=== PATIENT | female | born 1975 | race Caucasian/White ===

== ENCOUNTER 2016-11-30 18:15 | Emergency (ER) | payer OTHER ==
[~2016-11-30] VITALS: Ht 170.2 cm; Wt 100.2 kg
[~2016-11-30 18:15] MED LIST: ATORVASTATIN CA10 MG PO; BENTYL10 MG PO; BUSPIRONE10 MG PO; CIPROFLOXACIN500 MG PO; CRANBERRY400 MG PO; CYCLOBENZAPRINE5 M2 PO; CYMBALTA 30 MG30 MG PO; DONNATAL TABS1 TAB PO; FLEXERIL10 MG PO; HYDROXYZINE PAM25 MG PO; IBUPROFEN800 M1 PO; LEXAPRO 20MG M20 MG PO; MEDROL DOSEPAK1 PAC PO; MELOXICAM7.5 MG PO; METFORMIN ER500 MG PO; METFORMIN HCL1000 M2 PO; METFORMIN HCL500 MG PO; NEURONTIN300 MG PO; NORCO 325 MG-51 TAB PO; PERCOCET 325 MG1 TA2 PO; PERCOCET 5-3251 EACH PO; PREMARIN0.3 MG PO; TRAMADOL50 MG PO; TRAZODONE HCL100 M1 PO; ZOFRAN4 M1 PO; ZOFRAN4 M1 SL
[2016-11-30 18:25] VITALS: BP 126/85
--- NOTE | 2016-11-30 19:01 | ED UPPER/LOWER EXTREMITY COMPL ---
History of Present Illness General Chief Complaint: Shoulder Injury Stated Complaint: L SHOULDER INJURY Source: patient, old records Exam Limitations: no limitations Vital Signs & Intake/Output Vital Signs & Intake/Output Vital Signs Date Time Temp Pulse Resp B/P Pulse O2 O2 Flow FiO2 Ox Delivery Rate 11/30 1825 96.9 92 18 126/85 96 Room Air ED Intake and Output 12/01 0000 11/30 1200 Intake Total Output Total Balance Patient 221 lb Weight Allergies Coded Allergies: Sulfa (Sulfonamide Antibiotics) (Intermediate, RASH 01/26/16) erythromycin base (Mild, HIVES 01/26/16) latex (Mild, RASH 01/26/16) Reconcile Medications Albuterol Sulfate (Proair Hfa) 90 MCG HFA.AER.AD 2 PUF INH Q4-6 PRN PRN RESPIRATORY (Reported) Atorvastatin Calcium (Lipitor) 10 MG TAB 1 TAB PO DAILY CHOLESTEROL (Reported ) Cephalexin 500 MG CAPSULE 1 CAP PO 4 TIMES/DAY ANTIBIOTIC (Reported) Duloxetine HCl 30 MG CAPSULE.DR 1 CAP PO DAILY ARTHRITIS (Reported) Escitalopram Oxalate (Lexapro 20MG) 20 MG TAB 1 TAB PO DAILY MENTAL HEALTH ( Reported) Estrogens, Conjugated (Premarin) 0.45 MG TABLET 1 TAB PO DAILY HRT (Reported) Gabapentin (Neurontin) 300 MG CAP 2 CAP PO DAILY MENTAL HEALTH (Reported) Gabapentin (Neurontin) 300 MG CAP 4 CAP PO AT BEDTIME MENTAL HEALTH (Reported ) Hydrocodone/Acetaminophen ([place] 5-325 Tablet) 5 MG-325 MG TABLET 1 TAB PO Q4- 6 PRN PRN pain Hydroxyzine HCl 10 MG TABLET 1 TAB PO TID ANXIETY (Reported) Liraglutide (Victoza 3-Jarrod) 0.6 MG/0.1 ML (18 MG/3 ML) PEN.INJCTR 1.8 MG SC DAILY DM (Reported) Metformin Hydrochloride (Metformin HCl) 500 MG TAB 2 TAB PO BID DIABETES ( Reported) Methocarbamol (Robaxin-750) 750 MG TABLET 1 TAB PO TID PRN muscle spasm Naproxen (Naprosyn) 500 MG TABLET 1 TAB PO BID PRN pain Trazodone HCl 100 MG TABLET 2 TAB PO QPM SLEEP (Reported) Varenicline Tartrate (Chantix) (Unknown Strength) TAB.DS.PK (Unknown Dose) UNKNOWN (Reported) Triage Note: PT TO TRIAGE WITH LEFT SHOULDER PAIN 8/10 S/P PULLED HERSELF INTO TRACK 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 ICE PACK PROVIDED. PT REFUSED PAIN MEDS IN TRIAGE. VSS. Triage Nurses Notes Reviewed? yes : No Patient currently breastfeeds: No HPI: 41-year-old vrsd-tlyi-lnrenycu female here with complaints of severe left shoulder pain that started yesterday. She reached up to pull herself into her pickup truck when she felt a severe pain into the top of the left shoulder and has had severe pain with any attempts at motion ever since. She has history of bursitis in the shoulder. Ezgu-twr-dsjryku medication has been infected. It is aching and throbbing. There is no pain radiating down the arm, there was no fall or trauma. (SAMINA MARK) Past History Travel History Traveled to [place] past 21 day No Medical History Any Pertinent Medical History? 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 No (SAMINA MARK) Review of Systems Review of Systems Constitutional: Reports: see HPI. EENTM: Reports: no symptoms. Respiratory: Reports: no symptoms. Cardiovascular: Reports: no symptoms. Gastrointestinal/Abdominal: Reports: no symptoms. Genitourinary: Reports: no symptoms. Musculoskeletal: Reports: see HPI. Skin: Reports: no symptoms. Neurological/Psychological: Reports: no symptoms. Hematologic/Endocrine: Reports: no symptoms. Immunological: Reports: no symptoms. All Other Systems: Reviewed and Negative (SAMINA MARK) Physical Exam Physical Exam General Appearance: well developed/nourished Comments: Well-developed well-nourished no apparent distress. HEENT: Atraumatic, extraocular motion intact Neck: Supple, no lymphadenopathy Back: Nontender Respiratory: No respiratory distress Extremities: No edema, Tenderness to the left distal trapezius region near the clavicle and superior scapular spine region. Mild muscle spasm noted there. Range of motion is severely limited secondary to pain, 0-30 on forward elevation and abduction, internal and external rotation is normal., Could not test rotator cuff due to limited range of motion. Neurovascularly intact. Neuro: Alert and oriented x3 Psych: Mood affect normal, normal memory normal judgment. Skin: Warm and dry, no rash on exposed skin (SAMINA MARK) Progress Differential Diagnosis: arterial insufficiency, cellulitis, CHF, compartment syndrome, contusion, dislocation, DVT, fracture, gout, septic arthritis, sprain, tendon injury Plan of Care: Orders Procedure Date/time Status Durable Medical Equipment 11/30 1905 Active Diagnostic Imaging: Viewed by Me: Radiology Read. Discussed w/RAD: Radiology Read. Radiology Impression: PATIENT: LEDA SANTANA PRESENT AGE: 41 PATIENT ACCOUNT NO: [id number] : 74 LOCATION: [facility] ORDERING PHYSICIAN: SAMINA GREENBERG SERVICE DATE: 11/30/16 EXAM TYPE: RAD - XRY-SHOULDER COMPLETE-LEFT EXAMINATION: XR SHOULDER, LEFT CLINICAL INFORMATION: Left shoulder pain. COMPARISON: None. TECHNIQUE: Internal rotation, external rotation and transscapular views of the left shoulder. FINDINGS: No acute fracture or dislocation of the left shoulder. The left acromioclavicular joint is intact. No acute bone, joint or soft tissue abnormality is demonstrated. Posttraumatic deformity involving the mid clavicle. IMPRESSION: No acute fracture or dislocation of the left shoulder. Old healed fracture of the left clavicle. 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 She will be given anti-inflammatory medication muscle relaxers and pain medication, recommend warm compresses gentle stretching orthopedic follow-up if no better in 1-2 weeks. (SAMINA MARK) Departure Departure Disposition: HOME OR SELF CARE Condition: Stable Clinical Impression Primary Impression: Strain of left trapezius muscle Qualifiers: Encounter type: initial encounter Qualified Code: S46.812A - Strain of other muscles, fascia and tendons at shoulder and upper arm level, left arm, initial encounter Referrals: ARIEL NAIDU,PATTI LI MD,INDIRA (PCP/Family) Additional Instructions: Rest, warm compresses, sling for comfort, gentle stretching Take medication as directed for pain and inflammation and muscle spasm Gradual return to activity as tolerated. Follow-up with orthopedist in one to 2 weeks if no better. Departure Forms: Customer Survey General Discharge Information Prescriptions: Current Visit Scripts Methocarbamol (Robaxin-750) 1 TAB PO TID PRN muscle spasm #15 TAB Naproxen (Naprosyn) 1 TAB PO BID PRN pain #20 TAB Hydrocodone/Acetaminophen ([place] 5-325 Tablet) 1 TAB PO Q4-6 PRN PRN pain #10 TAB (SAMINA MARK) PA/FORENSIC SOCIAL WORKER Co-Sign Statement Statement: ED Attending supervision documentation- [] I saw and evaluated the patient. I have also reviewed all the pertinent lab results and diagnostic results. I agree with the findings and the plan of care as documented in the PA's/FORENSIC SOCIAL WORKER's documentation. [X] I have reviewed the ED Record and agree with the PA's/FORENSIC SOCIAL WORKER's documentation. [] Additions or exceptions (if any) to the PAs/FORENSIC SOCIAL WORKER's note and plan are summarized below: [] (BENIGNO NAIDU,HERNANDEZ)
[2016-11-30] MEDS ORDERED: ROBAXIN-750750 M1 PO (19:09)
[2016-11-30] MEDS ORDERED: NAPROSYN500 M1 PO (19:09)
[2016-11-30] MEDS ORDERED: NORCO 5-325 TA1 EACH PO (19:09)
--- NOTE | 2016-11-30 19:09 | RADIOLOGY REPORT ---
EXAMINATION: XR SHOULDER, LEFT CLINICAL INFORMATION: Left shoulder pain. COMPARISON: None. TECHNIQUE: Internal rotation, external rotation and transscapular views of the left shoulder. FINDINGS: No acute fracture or dislocation of the left shoulder. The left acromioclavicular joint is intact. No acute bone, joint or soft tissue abnormality is demonstrated. Posttraumatic deformity involving the mid clavicle. IMPRESSION: No acute fracture or dislocation of the left shoulder. Old healed fracture of the left clavicle.
[2016-11-30] MEDS ORDERED: HYDROXYZINE HCL10 M1 PO (19:32)
[2016-11-30] MEDS ORDERED: CEPHALEXIN500 M3 PO (19:32)
[2016-11-30] MEDS ORDERED: CHANTIX1 EACH (19:33)
[2016-11-30] MEDS ORDERED: PROAIR HFA8.5 GM INH (19:33)
[2016-11-30] MEDS ORDERED: VICTOZA 3-0.6 MG/0.1 SC (19:34)
[2016-11-30] MEDS ORDERED: PREMARIN0.45 M1 PO (19:34)
[2016-11-30] MEDS ORDERED: DULOXETINE HCL30 MG PO (19:35)
== END 2016-11-30 19:41 ==
LOC: ERH 18:15
DX: S46.912A Strain of unspecified muscle, fascia and tendon at shoulder and upper arm level, left arm, initial encounter (principal); X58.XXXA Exposure to other specified factors, initial encounter
CPT/HCPCS: 73030-LT

== ENCOUNTER 2016-12-19 00:38 | Emergency (ER) | payer OTHER ==
[~2016-12-19] VITALS: Ht 172.7 cm; Wt 99.8 kg
[~2016-12-19 00:38] MED LIST changes: +CEPHALEXIN500 M3 PO; +CHANTIX1 EACH; +DULOXETINE HCL30 MG PO; +HYDROXYZINE HCL10 M1 PO; +NAPROSYN500 M1 PO; +NORCO 5-325 TA1 EACH PO; +PREMARIN0.45 M1 PO; +PROAIR HFA8.5 GM INH; +ROBAXIN-750750 M1 PO; +VICTOZA 3-0.6 MG/0.1 SC
--- NOTE | 2016-12-19 01:08 | ED GENERAL ADULT ---
History of Present Illness General Chief Complaint: Chest Pain Stated Complaint: BIBA CP Source: patient Exam Limitations: no limitations Allergies Coded Allergies: Sulfa (Sulfonamide Antibiotics) (Intermediate, RASH 01/26/16) erythromycin base (Mild, HIVES 01/26/16) latex (Mild, RASH 01/26/16) Reconcile Medications Albuterol Sulfate (Proair Hfa) 90 MCG HFA.AER.AD 2 PUF INH Q4-6 PRN PRN RESPIRATORY (Reported) Atorvastatin Calcium (Lipitor) 10 MG TAB 1 TAB PO DAILY CHOLESTEROL (Reported ) Cephalexin 500 MG CAPSULE 1 CAP PO 4 TIMES/DAY ANTIBIOTIC (Reported) Duloxetine HCl 30 MG CAPSULE.DR 1 CAP PO DAILY ARTHRITIS (Reported) Escitalopram Oxalate (Lexapro 20MG) 20 MG TAB 1 TAB PO DAILY MENTAL HEALTH ( Reported) Estrogens, Conjugated (Premarin) 0.45 MG TABLET 1 TAB PO DAILY HRT (Reported) Gabapentin (Neurontin) 300 MG CAP 2 CAP PO DAILY MENTAL HEALTH (Reported) Gabapentin (Neurontin) 300 MG CAP 4 CAP PO AT BEDTIME MENTAL HEALTH (Reported ) Hydrocodone/Acetaminophen ([place] 5-325 Tablet) 5 MG-325 MG TABLET 1 TAB PO Q4- 6 PRN PRN pain Hydroxyzine HCl 10 MG TABLET 1 TAB PO TID ANXIETY (Reported) Liraglutide (Victoza 3-Jarrod) 0.6 MG/0.1 ML (18 MG/3 ML) PEN.INJCTR 1.8 MG SC DAILY DM (Reported) Metformin Hydrochloride (Metformin HCl) 500 MG TAB 2 TAB PO BID DIABETES ( Reported) Methocarbamol (Robaxin-750) 750 MG TABLET 1 TAB PO TID PRN muscle spasm Naproxen (Naprosyn) 500 MG TABLET 1 TAB PO BID PRN pain Trazodone HCl 100 MG TABLET 2 TAB PO QPM SLEEP (Reported) Varenicline Tartrate (Chantix) (Unknown Strength) TAB.DS.PK (Unknown Dose) UNKNOWN (Reported) Triage Note: PT BIBA FROM HOME C/O LEFT SIDED CP RADIATING UP NECK ONSET 11 AM YESTERDAY WHILE AT WORK SITTING DOWN. PT REPORTS PAIN GETTING INCREASINGLY WORSE THROUGHOUT THE DAY BEING AT ITS WORSE AT 10 PM. PT REPORTS TAKING TOTAL 567 ASPIRIN. PER EMS PT GIVEN ONE NITRO WIHOUT RELIEF. PT DENIES SO, N/V, FEVER AND CHILLS Triage Nurses Notes Reviewed? yes : No Patient currently breastfeeds: No HPI: Patient is a 41 year old lady that was BIBA due chest pain that started this am at 11, was sharp, 8/10, intermittent but became constant at around 10 pm when she had an argument with her significant other. patient first thought the pain was a panic attack similar to what she had from before but due to the length and severity became concerned that it might be cardiac related. She took 3 tabs of 81 mg aspirin, and called EMS, she then took another 4 tabs due to their suggestion. EMS also gave her SL nitroglycerin which did not alleviated the pain , she had BP of 118/70 and BS of 212, SO2 94% on RA. In the ED patient still complains of severe 11/10 chest pain on the left side, not positional, not related to breathing and present at rest, radiating to the neck on the left side but not jaw or arm. Denies diaphoresis, SOB, reports coughing which is not productive, history of smoking. Denies fever or chills, denies dysuria, abdominal pain, constipation. reports diarrhea which is chronic due to IBS. (FERNANDEZ NAIDU,[facility]) Vital Signs & Intake/Output Vital Signs & Intake/Output Vital Signs Date Time Temp Pulse Resp B/P Pulse O2 O2 Flow FiO2 Ox Delivery Rate 12/19 0252 94 12/19 0045 98.2 71 20 108/64 96 Room Air LMP (ages 10-50): unknown (SCAR NAIDU,KARLA) Past History Travel History Traveled to [place] past 21 day No Medical History Any Pertinent Medical History? 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 No (HANNAH PRESLEY MD) Review of Systems Review of Systems Constitutional: Denies: chills, diaphoresis, fever, malaise, weakness. EENTM: Reports: no symptoms. Respiratory: Reports: cough. Denies: short of breath. Cardiovascular: Reports: chest pain. Denies: orthopena, palpitations. GI: Reports: diarrhea. Genitourinary: Reports: no symptoms. Musculoskeletal: Reports: no symptoms. Skin: Reports: no symptoms. Neurological/Psychological: Denies: headache, weakness. Hematologic/Endocrine: Reports: no symptoms. (HANNAH PRESLEY MD) Review of Systems Immunologic/Allergic: Reports: no symptoms. All Other Systems: Reviewed and Negative (KARLA ABBOTT MD) Physical Exam Physical Exam General Appearance: well developed/nourished, no apparent distress, alert, awake , comfortable Head: atraumatic, normal appearance Eyes: Bilateral: PERRL, EOMI. Ears, Nose, Throat: normal pharynx, normal ENT inspection Neck: normal inspection, supple, full range of motion Respiratory: chest non-tender, wheezing bilaterally Cardiovascular: regular rate/rhythm, no murmurs Peripheral Pulses: 2+ radial (R), 0 radial (L) (due to previous trauma (fx)) Gastrointestinal: normal bowel sounds, soft, non-tender Back: normal inspection, normal range of motion, no vertebral tenderness Extremities: normal inspection, normal capillary refill, normal range of motion, no edema Neurologic/Psych: no motor/sensory deficits, awake, alert, oriented x 3, normal gait Skin: intact Core Measures ACS in differential dx? Yes CVA/TIA Diagnosis: No Severe Sepsis Present: No Septic Shock Present: No (HANNAH PRESLEY MD) Physical Exam Reflexes: 2+: bicep (R), bicep (L). Lymphatic: no anterior cervical chintan (KARLA ABBOTT MD) Progress Differential Diagnoses I considered the following diagnoses in my evaluation of the patient: [ACS, pneumonia, COPD exacerbation, anxiety attack] Initial ED EKG: NSR Comments: 4 am, patient still in pain (left chest), nebulizer treatment decreased wheezing. She received 2 mg IV ativan. second troponin came back negative. 5:50 am, patient is sleeping. (HANNAH PRESLEY MD) Plan of Care: Orders Procedure Date/time Status TROPONIN LEVEL 12/19 399 Complete TROPONIN LEVEL 12/19 110 Complete CBC WITHOUT DIFFERENTIAL 12/19 110 Complete BASIC METABOLIC PANEL 12/19 110 Complete EKG 12/19 39 Active Laboratory Tests 12/19/16 0404: Troponin I < 0.01 12/19/16 0131: Anion Gap 8, Estimated GFR > 60, BUN/Creatinine Ratio 25.7 H, Glucose 181 H, Calcium 9.1, Troponin I < 0.01, CBC w Diff NO MAN DIFF REQ, RBC 4.73, MCV 88.5, MCH 31.4 H, RDW 13.9, MPV 7.7, Gran % 63.6, Lymphocytes % 26.0, Monocytes % 5.6 , Eosinophils % 3.7, Basophils % 1.1, Absolute Granulocytes 7.0 H, Absolute Lymphocytes 2.9, Absolute Monocytes 0.6, Absolute Eosinophils 0.4, Absolute Basophils 0.1, PUBS MCHC 35.4 Comments: Improved after interventions. (KARLA ABBOTT MD) Departure Departure Time of Disposition: 628 Disposition: HOME OR SELF CARE Condition: Stable Clinical Impression Primary Impression: Anxiety attack Ruled Out Impressions: ACS (acute coronary syndrome) Referrals: INDIRA LI MD (PCP/Family) Additional Instructions: Please follow up with your PCP within a week of discharge; come back to the ED if symptoms worsen. Continue hydroxyzine for generalized anxiety disorder. Departure Forms: Customer Survey General Discharge Information (HANNAH PRESLEY MD) Resident Co-Sign Statement Statement: ED Attending supervision documentation- x I saw and evaluated the patient. I have also reviewed all the pertinent lab results and diagnostic results. I agree with the findings and the plan of care as documented in the Resident's documentation. [] I have reviewed the ED Record and agree with the Resident's documentation. [] Additions or exceptions (if any) to the Resident's note and plan are summarized below: [] (KARLA ABBOTT MD) Critical Care Note Critical Care Note Critical Care Time: non-applicable (HANNAH PRESLEY MD)
[2016-12-19 01:40] LABS: ABSOLUTE BASOPHIL COUNT 0.1 /CUMM (0.0-0.2); ABSOLUTE EOSINOPHIL COUNT 0.4 /CUMM (0.0-0.7); ABSOLUTE LYMPH COUNT 2.9 /CUMM (1.2-3.4); ABSOLUTE MONOCYTE COUNT 0.6 /CUMM (0.10-0.60); BASOPHIL % 1.1 % (0.0-2.0); EOSINOPHIL % 3.7 % (0-5); GRANULOCYTE % 63.6 % (42.2-75.2); HEMATOCRIT 41.9 % (37-47); MEAN CORPUSCULAR HGB 31.4 PG (27.0-31.0); MEAN CORPUSCULAR HGB CONC 35.4 G/DL (33.0-37.0); MEAN CORPUSCULAR VOLUME 88.5 FL (81.0-99.0); MEAN PLATELET VOLUME 7.7 FL (7.4-10.4); PLATELET COUNT 265 /CUMM (130-400); RBC DISTRIBUTION WIDTH 13.9 % (11.5-14.5); RED BLOOD CELL CT 4.73 /CUMM (4.20-5.40); WHITE BLOOD CELL COUNT 10.9 /CUMM (4.8-10.8)
--- NOTE | 2016-12-19 01:56 | RADIOLOGY REPORT ---
EXAMINATION: PA and lateral chest radiograph CLINICAL INFORMATION: Acute coronary syndrome COMPARISON: Chest x-ray 09/18/2013. TECHNIQUE: PA and lateral views of the chest were obtained. FINDINGS: There is no focal consolidation, pleural effusion, or pneumothorax. Cardiac silhouette size is normal. There are no acute osseous findings. IMPRESSION: No acute pulmonary process.
[2016-12-19 06:42] VITALS: BP 106/66
== END 2016-12-19 06:47 ==
LOC: ERH 00:38
PROVIDERS: Ophthalmology
DX: R07.9 Chest pain, unspecified (principal); F41.9 Anxiety disorder, unspecified; I24.9 Acute ischemic heart disease, unspecified
CPT/HCPCS: 1263; 1395; 93005; 93010; 96374; 96375; J1885

== ENCOUNTER 2017-04-27 18:47 | Emergency (ER) | payer OTHER ==
[~2017-04-27] VITALS: Ht 170.2 cm; Wt 103.9 kg
[2017-04-27] MEDS ORDERED: KEFLEX500 M1 PO (20:54)
[2017-04-27] MEDS ORDERED: BACTROBAN NASAL1 GM NASB (20:54)
[2017-04-27] MEDS ORDERED: DIFLUCAN200 M1 PO (20:57)
--- NOTE | 2017-04-27 20:57 | ED HEAD/FACIAL INJ COMPLAINT ---
History of Present Illness General Chief Complaint: General Adult Stated Complaint: GREEN DRAINAGE FROM NOSE,SWOLLEN GLANDS,?TICK BITE Source: patient Exam Limitations: no limitations Vital Signs & Intake/Output Vital Signs & Intake/Output Vital Signs Date Time Temp Pulse Resp B/P B/P Pulse O2 O2 Flow FiO2 Mean Ox Delivery Rate 04/27 2148 97.5 89 18 134/88 97 Room Air Room Air 04/27 1907 97.0 95 20 140/92 96 Room Air ED Intake and Output 04/28 0000 04/27 1200 Intake Total Output Total Balance Patient 229 lb Weight Allergies Coded Allergies: Sulfa (Sulfonamide Antibiotics) (Intermediate, RASH 01/26/16) erythromycin base (Mild, HIVES 01/26/16) latex (Mild, RASH 01/26/16) Reconcile Medications Albuterol Sulfate (Proair Hfa) 90 MCG HFA.AER.AD 2 PUF INH Q4-6 PRN PRN RESPIRATORY (Reported) Atorvastatin Calcium (Lipitor) 10 MG TAB 1 TAB PO DAILY CHOLESTEROL (Reported ) Cephalexin 500 MG CAPSULE 1 CAP PO 4 TIMES/DAY ANTIBIOTIC (Reported) Cephalexin (Keflex) 500 MG CAPSULE 1 CAP PO TID impetigo Duloxetine HCl 30 MG CAPSULE.DR 1 CAP PO DAILY ARTHRITIS (Reported) Escitalopram Oxalate (Lexapro 20MG) 20 MG TAB 1 TAB PO DAILY MENTAL HEALTH ( Reported) Estrogens, Conjugated (Premarin) 0.45 MG TABLET 1 TAB PO DAILY HRT (Reported) Fluconazole (Diflucan) 200 MG TABLET 1 TAB PO DAILY candidiasis Gabapentin (Neurontin) 300 MG CAP 2 CAP PO DAILY MENTAL HEALTH (Reported) Gabapentin (Neurontin) 300 MG CAP 4 CAP PO AT BEDTIME MENTAL HEALTH (Reported ) Hydrocodone/Acetaminophen ([place] 5-325 Tablet) 5 MG-325 MG TABLET 1 TAB PO Q4- 6 PRN PRN pain Hydroxyzine HCl 10 MG TABLET 1 TAB PO TID ANXIETY (Reported) Liraglutide (Victoza 3-Jarrod) 0.6 MG/0.1 ML (18 MG/3 ML) PEN.INJCTR 1.8 MG SC DAILY DM (Reported) Metformin Hydrochloride (Metformin HCl) 500 MG TAB 2 TAB PO BID DIABETES ( Reported) Methocarbamol (Robaxin-750) 750 MG TABLET 1 TAB PO TID PRN muscle spasm Mupirocin Calcium (Bactroban Nasal) 2 % OINT...G. 1 GM NASB BID impetigo apply one-half in each nostril Naproxen (Naprosyn) 500 MG TABLET 1 TAB PO BID PRN pain Trazodone HCl 100 MG TABLET 2 TAB PO QPM SLEEP (Reported) Varenicline Tartrate (Chantix) (Unknown Strength) TAB.DS.PK (Unknown Dose) UNKNOWN (Reported) Triage Note: PER PT FEELING LIKE "SHIT" FOR 10 DAYS. PRIOR TO FEELING BAD FOUND 2 TICKS ON ME. 1 TO L THIGH/HIP 1 TO RT EAR, NO RED AREAS. PT REPORTS GREEN MUCOUS FROM NOSE, ALL GLANDS SWOLLEN PAIN TO L BACK OF LEG DOWN TO FOOT WITH PROLONGED SITTING. HX OF HYSTERRECTOMY. Triage Nurses Notes Reviewed? yes : No Patient currently breastfeeds: No HPI: Ms. Issa is a 41 yo f w/ PMH anxiety, depression, PTSD, DM, OA, cervical ca, obesity presenting to ED for various complaints. Patient states she's had URI sx over the past few days. Production of green/yellow crusting/sputum from nares. Pt also states that 2 weeks ago, she found 2 ticks on her (one on R ear and one on L hip). Pt does not know how long they were on there, but she is confident they were dear ticks. Pt states she's had many ticks before as she lives in the [facility]. No fever, no arthlagias and no rash. Pt also endorsing L leg pain at the junction of the buttock and leg. Pain does not radiate but worsens if she sits for long period of time. She has extensive lumbar disease. (TREVOR NAIDU,WADE) Past History Travel History Traveled to [place] past 21 day No Medical History Any Pertinent Medical History? 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 No (WADE MURRAY MD) Review of Systems Review of Systems Constitutional: Reports: malaise. EENTM: Reports: nasal pain (green/yellow discharge). Respiratory: Reports: see HPI. Cardiovascular: Reports: see HPI. GI: Reports: see HPI. Genitourinary: Reports: see HPI. Musculoskeletal: Reports: muscle pain. Skin: Reports: see HPI. Neurological/Psychological: Reports: no symptoms. Hematologic/Endocrine: Reports: no symptoms. Immunologic/Allergic: Reports: no symptoms. All Other Systems: Reviewed and Negative (WADE MURRAY MD) Physical Exam Physical Exam General Appearance: well developed/nourished, no apparent distress, alert, awake , comfortable Head: atraumatic, normal appearance Eyes: Bilateral: normal appearance, PERRL, EOMI. Ears, Nose, Throat: normal pharynx, hearing grossly normal, nasal septum abraded and erythematous Neck: normal inspection, supple, full range of motion Respiratory: normal breath sounds, chest non-tender, no respiratory distress Cardiovascular: regular rate/rhythm Gastrointestinal: normal bowel sounds Back: normal inspection, normal range of motion Extremities: normal inspection, normal capillary refill, normal range of motion, no edema Psychiatric: awake, alert, oriented x 3 Cranial Nerves: normal hearing, normal speech, PERRL, CN 2-12 grossly intact Coordination/Gait: normal gait Motor/Sensory: no motor/sensory deficits Skin: intact, normal color, warm/dry Lymphatic: +cervical lymphadenopathy (WADE MURRAY MD) Progress Differential Diagnosis: impetigo, strep pharyngitis, spinal stenosis, sciatica, Lyme disease Plan of Care: Patient is generally well-appearing. No evidence of exudate on tonsils. No significant swelling or erythema to suggest strep pharyngitis. Known history of extensive degenerative lumbar disc disease. No change in gait or bowel or bladder habits. Neuro exam otherwise unremarkable. Unlikely cauda equina or other compressive process ongoing. Nasal septum noted to be erythematous and abraded. Several areas have yellow/green crusting suggestive of impetigo with in and around entrance into nostrils. Mild to moderate cervical lymphadenopathy without significant exudates or tonsillar pillar swelling. Swab was obtained in the triage area. Possible Lyme disease with patient's tick exposure, however, there is no rash or fever. Patient does not complain of arthralgias. Plan to treat as impetigo with Keflex and Mupirocin locally. Patient also requested Diflucan as she will often develop a vaginal candidal infection after antibiotic use. Patient given prescription for Diflucan. Instructed to follow-up with her primary care doctor on as she has an appointment already scheduled. We will have the PCP to determine whether she feels is necessary to treat the patient with Doxy for her tick exposures, however I do not find it necessary at this point in time given the lack of other supporting symptoms. (WADE MURRAY MD) Departure Departure Time of Disposition: 2051 Disposition: HOME OR SELF CARE Condition: Stable Clinical Impression Primary Impression: Impetigo Secondary Impressions: Left buttock pain, Sore throat Referrals: GUILLERMO NAIDU,INDIRA (PCP/Family) Additional Instructions: Please take the full course of Keflex. You can apply the Mupirocin directly to your nose. If you develop a yeast infection from the antibiotics. Otherwise, please throw away the prescription. Make sure you do not share food, utensils, or kiss anyone directly on the lips as this can cause your impetigo to spread. Make sure you go see your doctor on for follow up. Departure Forms: Customer Survey General Discharge Information RELEASE- WORK Prescriptions: Current Visit Scripts Cephalexin (Keflex) 1 CAP PO TID #21 CAP Mupirocin Calcium (Bactroban Nasal) 1 GM NASB BID #10 GM apply one-half in each nostril Fluconazole (Diflucan) 1 TAB PO DAILY #2 TAB (WADE MURRAY MD) PA/DIRECTOR OF RESTAURANT OPERATIONS Co-Sign Statement Statement: ED Attending supervision documentation- [] I saw and evaluated the patient. I have also reviewed all the pertinent lab results and diagnostic results. I agree with the findings and the plan of care as documented in the PA's/DIRECTOR OF [employer]AUR[employer]PERATIONS's documentation. [X] I have reviewed the ED Record and agree with the PA's/DIRECTOR OF RESTA[employer]PERATIONS's documentation. [] Additions or exceptions (if any) to the PAs/DIRECTOR OF RESTAURANT [employer]PERATIONS's note and plan are summarized below: [] (STACY NAIDU,NIRANJAN Borges
[2017-04-27 21:48] VITALS: BP 134/88
== END 2017-04-27 21:48 ==
LOC: ERH 18:47
DX: L01.00 Impetigo, unspecified (principal); J02.9 Acute pharyngitis, unspecified; M25.552 Pain in left hip; Z87.891 Personal history of nicotine dependence

== ENCOUNTER 2017-05-13 20:48 | Emergency (ER) | payer OTHER ==
[~2017-05-13 20:48] MED LIST changes: +BACTROBAN NASAL1 GM NASB; +DIFLUCAN200 M1 PO; +KEFLEX500 M1 PO
[2017-05-13 20:52] VITALS: BP 135/91
--- NOTE | 2017-05-13 21:16 | ED SKIN/ALLERGY COMPLAINT ---
History of Present Illness General Chief Complaint: Skin Rash/ Abcess Stated Complaint: DX'ED WITH IMPETIGO LAST WEEK, FINISHED MEDS,BACK Source: patient, old records Exam Limitations: no limitations Vital Signs & Intake/Output Vital Signs & Intake/Output Vital Signs Date Time Temp Pulse Resp B/P B/P Pulse O2 O2 Flow FiO2 Mean Ox Delivery Rate 05/13 2052 97.0 97 20 135/91 99 Allergies Coded Allergies: Sulfa (Sulfonamide Antibiotics) (Intermediate, RASH 01/26/16) erythromycin base (Mild, HIVES 01/26/16) latex (Mild, RASH 01/26/16) Reconcile Medications Albuterol Sulfate (Proair Hfa) 90 MCG HFA.AER.AD 2 PUF INH Q4-6 PRN PRN RESPIRATORY (Reported) Amoxicillin/Potassium Clav (Augmentin 875-125 Tablet) 875 MG-125 MG TABLET 1 TAB PO BID impetigo Atorvastatin Calcium (Lipitor) 10 MG TAB 1 TAB PO DAILY CHOLESTEROL (Reported ) Cephalexin 500 MG CAPSULE 1 CAP PO 4 TIMES/DAY ANTIBIOTIC (Reported) Cephalexin (Keflex) 500 MG CAPSULE 1 CAP PO TID impetigo Doxycycline Hyclate 100 MG TABLET 1 TAB PO BID cellulitis/MRSA Duloxetine HCl 30 MG CAPSULE.DR 1 CAP PO DAILY ARTHRITIS (Reported) Escitalopram Oxalate (Lexapro 20MG) 20 MG TAB 1 TAB PO DAILY MENTAL HEALTH ( Reported) Estrogens, Conjugated (Premarin) 0.45 MG TABLET 1 TAB PO DAILY HRT (Reported) Fluconazole (Diflucan) 150 MG TABLET 1 TAB PO ONCE yeast ppx Fluconazole (Diflucan) 200 MG TABLET 1 TAB PO DAILY candidiasis Gabapentin (Neurontin) 300 MG CAP 2 CAP PO DAILY MENTAL HEALTH (Reported) Gabapentin (Neurontin) 300 MG CAP 4 CAP PO AT BEDTIME MENTAL HEALTH (Reported ) Hydrocodone/Acetaminophen ([place] 5-325 Tablet) 5 MG-325 MG TABLET 1 TAB PO Q4- 6 PRN PRN pain Hydroxyzine HCl 10 MG TABLET 1 TAB PO TID ANXIETY (Reported) Liraglutide (Victoza 3-Jarrod) 0.6 MG/0.1 ML (18 MG/3 ML) PEN.INJCTR 1.8 MG SC DAILY DM (Reported) Metformin Hydrochloride (Metformin HCl) 500 MG TAB 2 TAB PO BID DIABETES ( Reported) Methocarbamol (Robaxin-750) 750 MG TABLET 1 TAB PO TID PRN muscle spasm Mupirocin Calcium (Bactroban Nasal) 2 % OINT...G. 1 GM NASB BID MRSA apply one-half in each nostril Mupirocin Calcium (Bactroban Nasal) 2 % OINT...G. 1 GM NASB BID impetigo apply one-half in each nostril Naproxen (Naprosyn) 500 MG TABLET 1 TAB PO BID PRN pain Trazodone HCl 100 MG TABLET 2 TAB PO QPM SLEEP (Reported) Varenicline Tartrate (Chantix) (Unknown Strength) TAB.DS.PK (Unknown Dose) UNKNOWN (Reported) Triage Note: PER PT DX WITH IMPETIGO FINISHED ANTIBIOTICS(UNSURE WHEN) NOW BACK Triage Nurses Notes Reviewed? yes Onset: Abrupt Duration: hour(s): (7), day(s):, constant, changing over time, continues in ED, getting worse Timing: recent history Severity: mild, moderate Severity Numbers: 7 Location: face (nares, perioral) No Modifying Factors: none LMP (ages 10-50): unknown : No Patient currently breastfeeds: No HPI: 41-year-old female with history of diabetes presents for evaluation of ago. Patient reports that 2 weeks ago she was seen in the emergency department and diagnosed with impetigo. She was given a prescription for topical Bactroban and Keflex. Patient reports she never picked up the Bactroban but I taken the Keflex with full course. She reports that soon after stopping the antibiotics the crusting lesions around her nose and perioral area returned. She denies any fevers, chills, sore throat, headaches, chest pain, or shortness of breath. She reports a green and yellow discharge coming from her nares. 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 No other associated symptoms. (TEVIN ASHFORD PA-C) Past History Travel History Traveled to [place] past 21 day No Medical History Any Pertinent Medical History? 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 Yes (TEVIN ASHFORD PA-C) Review of Systems Review of Systems Constitutional: Reports: no symptoms. EENTM: Reports: no symptoms. Respiratory: Reports: no symptoms. Cardiovascular: Reports: no symptoms. GI: Reports: no symptoms. Genitourinary: Reports: no symptoms. Musculoskeletal: Reports: no symptoms. Skin: Reports: see HPI, dryness, lesions. Neurological/Psychological: Reports: no symptoms. Hematologic/Endocrine: Reports: no symptoms. Immunologic/Allergic: Reports: no symptoms. All Other Systems: Reviewed and Negative (MAKEDA STEPHENSON,TEVIN) Physical Exam Physical Exam General Appearance: well developed/nourished, no apparent distress, alert, awake Head: atraumatic, normal appearance Eyes: Bilateral: normal appearance, PERRL, EOMI. Ears, Nose, Throat: normal pharynx, hearing grossly normal, there are multiple honey crusted lesions located in the bilateral nares. There is surrounding erythema and pain with palpation of the nares. maxillary and frontal sinuses are nontender to palpation bilaterally. additionally angular chelitis is present at the left perioral area. there is submental lymphadenopathy present. Neck: normal inspection, supple, full range of motion Respiratory: normal breath sounds, chest non-tender, no respiratory distress, lungs clear Cardiovascular: regular rate/rhythm, normal peripheral pulses Peripheral Pulses: 2+ dorsalis pedis (R), 2+ dorsalis pedis (L) Gastrointestinal: normal bowel sounds, soft, non-tender, no organomegaly Back: normal inspection, normal range of motion, no vertebral tenderness Extremities: normal inspection, normal capillary refill, normal range of motion, no edema, calf tenderness Neurologic/Psych: no motor/sensory deficits, awake, alert, oriented x 3, normal gait, normal mood/affect Reflexes: 2+: knee (R), knee (L). Skin: normal color, warm/dry Skin Problem Location: face (nares, perioral) Lymphatic: no anterior cervical chintan (MAKEDA STEPHENSON,TEVIN) Progress Differential Diagnosis: abscess/cellulitis, allergic reaction, contact dermatitis, scarlet fever, shingles, urticaria, impetigo, angular cheilitis, sinusitis, MRSA Plan of Care: Since patient is a diabetic she'll be treated with Augmentin and due to the history of MRSA we'll also cover her with Doxy. The patient will be given topical Bactroban to use for her nares. Advised her to follow-up with her primary care doctor this week for a recheck of her symptoms. Discussed treatment plan with patient she is nontoxic-appearing and agrees with the plan. (TEVIN ASHFORD PA-C) Departure Departure Disposition: HOME OR SELF CARE Condition: Stable Clinical Impression Primary Impression: Impetigo Secondary Impressions: Angular cheilitis due to bacterial infection Referrals: INDIRA LI MD (PCP/Family) Additional Instructions: Take Augmentin and Doxycycline for the full course and take a probiotic to replace of a bacteria. Apply topical Bactroban to the nostrils as directed twice a day. Fluconazole used as directed for yeast infection prophylaxis. Make a follow-up appointment with your primary care doctor this week. Return to the emergency department with any concerns. Departure Forms: Customer Survey General Discharge Information Prescriptions: Current Visit Scripts Amoxicillin/Potassium Clav (Augmentin 875-125 Tablet) 1 TAB PO BID #20 TAB Doxycycline Hyclate 1 TAB PO BID #20 TAB Mupirocin Calcium (Bactroban Nasal) 1 GM NASB BID #10 GM apply one-half in each nostril Fluconazole (Diflucan) 1 TAB PO ONCE #1 TAB (TEVIN ASHFORD PA-C) PA/GREENHOUSE [employer]OWER Co-Sign Statement Statement: ED Attending supervision documentation- [] I saw and evaluated the patient. I have also reviewed all the pertinent lab results and diagnostic results. I agree with the findings and the plan of care as documented in the PA's/GREENHOUSE GROWER's documentation. [x] I have reviewed the ED Record and agree with the PA's/GREENHOUSE GROWER's documentation. [] Additions or exceptions (if any) to the PAs/GREENHOUSE GROWER's note and plan are summarized below: [] (CRISTI BUCIO DO
[2017-05-13] MEDS ORDERED: DOXYCYCLINE HY100 M4 PO (21:24)
[2017-05-13] MEDS ORDERED: BACTROBAN NASAL1 GM NASB (21:24)
[2017-05-13] MEDS ORDERED: AUGMENTIN 875-1 EACH PO (21:24)
[2017-05-13] MEDS ORDERED: DIFLUCAN150 M1 PO (21:26)
== END 2017-05-13 21:30 ==
LOC: ERH 20:48
DX: L01.00 Impetigo, unspecified (principal); K13.0 Diseases of lips; A49.9 Bacterial infection, unspecified

== ENCOUNTER 2018-03-11 21:15 | Emergency (ER) | payer OTHER ==
[~2018-03-11] VITALS: Ht 170.2 cm; Wt 106.6 kg
[~2018-03-11 21:15] MED LIST changes: +AUGMENTIN 875-1 EACH PO; +DIFLUCAN150 M1 PO; +DOXYCYCLINE HY100 M4 PO
[2018-03-11 21:22] VITALS: BP 126/82
--- NOTE | 2018-03-11 21:37 | ED SKIN/ALLERGY COMPLAINT ---
History of Present Illness General Chief Complaint: Skin Rash/ Abcess Stated Complaint: "RASH ON ARMS AND LEGS" Source: patient Exam Limitations: no limitations Vital Signs & Intake/Output Vital Signs & Intake/Output Vital Signs Date Time Temp Pulse Resp B/P B/P Pulse O2 O2 Flow FiO2 Mean Ox Delivery Rate 03/11 2122 96.2 102 18 126/82 97 Room Air Room Air ED Intake and Output 03/12 0000 03/11 1200 Intake Total Output Total Balance Patient 235 lb Weight Weight Reported by Patient Measurement Method Allergies Coded Allergies: Sulfa (Sulfonamide Antibiotics) (Intermediate, RASH 01/26/16) erythromycin base (Mild, HIVES 01/26/16) latex (Mild, RASH 01/26/16) Reconcile Medications Albuterol Sulfate (Proair Hfa) 90 MCG HFA.AER.AD 2 PUF INH Q4-6 PRN PRN RESPIRATORY (Reported) Amoxicillin/Potassium Clav (Augmentin 875-125 Tablet) 875 MG-125 MG TABLET 1 TAB PO BID impetigo Atorvastatin Calcium (Lipitor) 10 MG TAB 1 TAB PO DAILY CHOLESTEROL (Reported ) Cephalexin 500 MG CAPSULE 1 CAP PO 4 TIMES/DAY ANTIBIOTIC (Reported) Cephalexin (Keflex) 500 MG CAPSULE 1 CAP PO TID impetigo Doxycycline Hyclate 100 MG TABLET 1 TAB PO BID cellulitis/MRSA Duloxetine HCl 30 MG CAPSULE.DR 1 CAP PO DAILY ARTHRITIS (Reported) Escitalopram Oxalate (Lexapro 20MG) 20 MG TAB 1 TAB PO DAILY MENTAL HEALTH ( Reported) Estrogens, Conjugated (Premarin) 0.45 MG TABLET 1 TAB PO DAILY HRT (Reported) Fluconazole (Diflucan) 150 MG TABLET 1 TAB PO ONCE yeast ppx Fluconazole (Diflucan) 200 MG TABLET 1 TAB PO DAILY candidiasis Gabapentin (Neurontin) 300 MG CAP 2 CAP PO DAILY MENTAL HEALTH (Reported) Gabapentin (Neurontin) 300 MG CAP 4 CAP PO AT BEDTIME MENTAL HEALTH (Reported ) Hydrocodone/Acetaminophen ([place] 5-325 Tablet) 5 MG-325 MG TABLET 1 TAB PO Q4- 6 PRN PRN pain Hydroxyzine HCl 10 MG TABLET 1 TAB PO TID ANXIETY (Reported) Liraglutide (Victoza 3-Jarrod) 0.6 MG/0.1 ML (18 MG/3 ML) PEN.INJCTR 1.8 MG SC DAILY DM (Reported) Metformin Hydrochloride (Metformin HCl) 500 MG TAB 2 TAB PO BID DIABETES ( Reported) Methocarbamol (Robaxin-750) 750 MG TABLET 1 TAB PO TID PRN muscle spasm Mupirocin Calcium (Bactroban Nasal) 2 % OINT...G. 1 GM NASB BID MRSA apply one-half in each nostril Mupirocin Calcium (Bactroban Nasal) 2 % OINT...G. 1 GM NASB BID impetigo apply one-half in each nostril Naproxen (Naprosyn) 500 MG TABLET 1 TAB PO BID PRN pain Prednisone 10 MG TABLET 1 TAB PO DAILY RASH 3 TABS PO X 3 DAYS, 2 TABS PO X 3 DAYS, 1 TAB PO X 3 DAYS Trazodone HCl 100 MG TABLET 2 TAB PO QPM SLEEP (Reported) Varenicline Tartrate (Chantix) (Unknown Strength) TAB.DS.PK (Unknown Dose) UNKNOWN (Reported) Triage Note: TRIAGE: 42 Y/O FEMALE PRESENTS C/O RASH TO BILAT ARMS. WAS PRESCRIBED TRIAMCINOLONE CREAM BY PCP - NO RELIEF. Triage Nurses Notes Reviewed? yes Onset: Gradual Duration: day(s): (2-3) Timing: no prior history Severity: moderate Severity Numbers: 6 Location: extremities Possible Factors: no cause identified No Modifying Factors: none : No Patient currently breastfeeds: No HPI: PT IS A 42-year-old female with history diabetes presenting to the emergency department complaining of rash that started on her right upper extremity now spreading to the left upper extremity and lower extremities. Rashes achy. Patient denies any new exposures. No new lotions. Denies fevers chills nausea vomiting chest pain or shortness of breath. Has been using topical triamcinolone cream without relief that she got from her primary care physician 2 days ago. Denies any recent travel. No and also similar rash. Denies any new pets. (Benita Rose) Past History Travel History Traveled to [place] past 21 day No Medical History Any Pertinent Medical History? 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 No (Benita Rose) Review of Systems Review of Systems Constitutional: Reports: no symptoms. Comments Review of systems: See HPI, All other systems negative. Constitutional, no chills fever or weight loss HEENT: No visual changes no sore throat no congestion Cardiovascular: No chest pain ,palpitation Skin, no jaundice Respiratory: No dyspnea cough sputum or hemoptysis GI: No nausea no vomiting Muscle skeletal: no back pain, no neck pain, Neurologic: No numbness no confusion Psych: No stress anxiety or depression,. Heme/endocrine: No bruising no bleeding no polyuria or polydipsia Immunology: No splenectomy or history of AIDS (Benita Rose) Physical Exam Physical Exam General Appearance: well developed/nourished, no apparent distress, alert, comfortable Comments: Well-developed well-nourished person in no acute distress HEENT: Atraumatic, normocephalic Neck: Normal inspection Respiratory: No respiratory distress. Extremity: No edema Neuro: Alert oriented x3 Skin: Erythematous, raised circular confluent rash noted on the right upper extremity extending over both the dorsum and the ventral aspect of the right forearm, patient also has similar rash on the dorsal aspect of the left forearm and the left sanchez. Blanchable. Nontender. Excoriations present. Psych: Mood and affect is normal, memory and judgment is normal. (Benita Rose) Progress Differential Diagnosis: contact dermatitis, irritant dermatitis,allergic reaction, nonspecific rash Plan of Care: Patient treated with oral steroids. She was told to monitor blood glucose level. Patient failed topical steroid treatment. (Benita Rose) Departure Departure Time of Disposition: 2132 Disposition: HOME OR SELF CARE Condition: Stable Clinical Impression Primary Impression: Rash Referrals: Shantal Vazquez MD (PCP/Family) Additional Instructions: Follow-up with your primary care physician called me appointment. Take prednisone taper as prescribed. Keep an eye on blood glucose levels as prednisone can make your glucose levels elevate. Increase fluids. Return for worsening symptoms or concerns. Avoid scratching rash. Avoid hot showers as this can make rash more itchy. Departure Forms: Customer Survey General Discharge Information Prescriptions: Current Visit Scripts Prednisone 1 TAB PO DAILY #18 TAB 3 TABS PO X 3 DAYS, 2 TABS PO X 3 DAYS, 1 TAB PO X 3 DAYS (Benita Rose) PA/TIE IN HAND Co-Sign Statement Statement: ED Attending supervision documentation- [] I saw and evaluated the patient. I have also reviewed all the pertinent lab results and diagnostic results. I agree with the findings and the plan of care as documented in the PA's/TIE IN HAND's documentation. [x] I have reviewed the ED Record and agree with the PA's/TIE IN HAND's documentation. [] Additions or exceptions (if any) to the PAs/TIE IN HAND's note and plan are summarized below: [] (Stephany NAIDU,Lukasz Silva)
[2018-03-11] MEDS ORDERED: PREDNISONE10 M2 PO (21:38)
== END 2018-03-11 22:02 ==
LOC: ERH 21:15
DX: R21 Rash and other nonspecific skin eruption (principal)